=== PATIENT | female | born 1950 | race Caucasian/White ===

== ENCOUNTER 2018-12-09 11:56 | Emergency (ER) | payer MEDICARE, OTHER ==
[2018-12-09] MEDS: PROPOFOL 200 MG INJ IV (16:10)
== END 2018-12-09 16:24 | disposition home or self-care (01) ==
LOC: FTE 11:56 → E/R 16:24
DX: S43.004A Unspecified dislocation of right shoulder joint, initial encounter (principal); I10 Essential (primary) hypertension; W18.2XXA Fall in (into) shower or empty bathtub, initial encounter; Y92.9 Unspecified place or not applicable
CPT/HCPCS: 23650; 73030-RT; 94770; 99285-25

== ENCOUNTER 2019-01-08 10:18 | Emergency (ER) | payer MEDICARE, OTHER ==
[2019-01-08] MEDS: IBUPROFEN 600 MG TAB PO (11:05)
== END 2019-01-08 12:59 | disposition home or self-care (01) ==
LOC: FTE 10:18
DX: M25.561 Pain in right knee (principal)
CPT/HCPCS: 29505; 73562; 99283-25